=== PATIENT | male | born 1935 | race African-American/Black ===

== ENCOUNTER → 2021-11-30 | Outpatient (CLI) | payer MEDICARE, OTHER | LOC: EMI 13:08 | DX: C71.1 Malignant neoplasm of frontal lobe (principal); G93.89 Other specified disorders of brain | CPT/HCPCS: 70553; A9577 ==

== ENCOUNTER 2022-01-12 13:01 | Emergency (ER) | payer MEDICARE, OTHER ==
[2022-01-12 13:59] LABS: HEMOGLOBIN 12.7 gm/dl (14.0-17.5); RED BLOOD COUNT 4.23 M/UL (4.20-5.50); WHITE BLOOD COUNT 6.2 K/UL (4.5-11.0)
[2022-01-12 14:27] LABS: BUN/CREATININE RATIO 13 (0-10)
== END 2022-01-12 19:44 ==
LOC: ER1 13:01
PROVIDERS: Physician Assistant
DX: G93.40 Encephalopathy, unspecified (principal); E11.9 Type 2 diabetes mellitus without complications; I10 Essential (primary) hypertension; Z85.858 Personal history of malignant neoplasm of other endocrine glands; Z88.8 Allergy status to other drugs, medicaments and biological substances
CPT/HCPCS: 51701; 70450; 71045; 80053; 81001; 82550; 82553; 83605; 84439; 84443; 84484; 85025; 87086; 93005; 96374; 99285; J0696